=== PATIENT | female | born 1940 | race Caucasian/White ===

== ENCOUNTER 2017-04-12 04:59 | Inpatient (IN) | payer OTHER ==
[~2017-04-12] VITALS: Ht 167.6 cm; Wt 87.6 kg
[~2017-04-12 04:59] MED LIST: Aspirin E.C. PO; VICODIN 5-3001 EACH PO; Zestril,Prinivil PO
[2017-04-12 05:35] LABS: HEMATOCRIT 45.1 % (36.0-46.0); MCH 30.1 PG (29.0-34.0); MCHC 32.8 G/DL (30.0-36.0); MCV 91.7 FL (83-99); MEAN PLAT.VOLUME 10.2 uM^3 (9.5-12.4); PLATELET COUNT 508 K/uL (156-360); RBC DIS.WIDTH-CV 14.6 % (11.8-14.6); RBC DIS.WIDTH-SD 49.7 % (39-53); RED BLOOD COUNT 4.92 M/uL (3.80-5.20)
[2017-04-12 05:44] LABS: CHLORIDE 103 mEq/L (99-109); SODIUM 137 mEq/L (136-147)
[2017-04-12 05:46] LABS: GLUCOSE 184 mg/dL (70-99)
[2017-04-12 05:47] LABS: ANION GAP 12 MEQ/L (2-14)
[2017-04-12 05:48] LABS: TOTAL BILIRUBIN 1.4 mg/dL (0.0-1.0)
[2017-04-12 05:50] LABS: ALKALINE PHOSPHATASE 60 IU/L (3-129); GFR ESTIMATE (CALCULATED) 47 mL/min/
[2017-04-12 05:51] LABS: DIRECT BILIRUBIN 0.6 mg/dL (0.0-0.3); UREA NITROGEN (BUN) 17 mg/dL (9-23)
[2017-04-12 05:56] LABS: LIPASE < 1 U/L (1.0-51.0); TROP-I INTERPRETATION POSITIVE; TROPONIN-I 1.02 ng/mL (0.0-0.30)
[2017-04-12 06:52] LABS: INTER. NORMALIZED RATIO 1.1; PROTHROMBIN TIME 11.6 (9.2-11.2); PTT 26.9 (25-32)
[2017-04-12 07:52] LABS: ADD MIUA? YES; BILIRUBIN NEGATIVE; BLOOD NEGATIVE; COLOR AMBER ((YELLOW)); GLUCOSE (STRIP) NEGATIVE; KETONES 5; LEUKOCYTES TRACE; NITRITE NEGATIVE; PROTEIN (STRIP) 30; SPECIFIC GRAVITY 1.024 (1.000-1.030)
[2017-04-12 08:02] LABS: BACTERIA NONE SEEN /HPF; EPITHELIAL CELLS 1+ /HPF; HYALINE CASTS 0-5 /LPF; MUCUS TRACE /LPF; RED BLOOD CELLS 0-5 /HPF (0-5); UCUL ADDED? NO; WHITE BLOOD CELLS 0-5 /HPF (0-5)
[2017-04-12 12:44] VITALS: BP 120/62
[2017-04-12 17:07] VITALS: BP 143/75
[2017-04-12 18:38] LABS: TROP-I INTERPRETATION POSITIVE; TROPONIN-I 1.25 ng/mL (0.0-0.30)
[2017-04-12 19:52] VITALS: BP 108/56
[2017-04-12 19:59] LABS: HDL CHOLESTEROL 47 MG/DL (Desirable>=50); LDL CHOLESTEROL 107 mg/dL (Desirable<100); NON-HDL CHOLESTEROL 129 mg/dL (Desirable<160); TOTAL CHOLESTEROL 176 mg/dL (Desirable<200); TRIGLYCERIDES 109 MG/DL (Normal: <150)
[2017-04-12 23:49] VITALS: BP 112/55
[2017-04-13 02:42] LABS: TROP-I INTERPRETATION POSITIVE
[2017-04-13 04:30] VITALS: BP 118/57
[2017-04-13 07:07] LABS: CHLORIDE 107 mEq/L (99-109); POTASSIUM 4.4 mEq/L (3.7-5.4); SODIUM 137 mEq/L (136-147)
[2017-04-13 07:11] LABS: ANION GAP 7 MEQ/L (2-14)
[2017-04-13 07:13] LABS: ALKALINE PHOSPHATASE 50 IU/L (3-129); GFR ESTIMATE (CALCULATED) 58 mL/min/
[2017-04-13 07:14] LABS: GLUCOSE 95 mg/dL (70-99); TOTAL BILIRUBIN 0.7 mg/dL (0.0-1.0); UREA NITROGEN (BUN) 17 mg/dL (9-23)
[2017-04-13 07:45] VITALS: BP 112/59
[2017-04-13 11:41] VITALS: BP 123/62
[2017-04-13] MEDS ORDERED: LO-DOSE ASPIRIN81 M1 PO (15:22)
[2017-04-13] MEDS ORDERED: ZESTRIL10 MG PO (15:22)
[2017-04-13 16:40] VITALS: BP 142/71
[2017-04-13 20:03] VITALS: BP 127/68
[2017-04-14] VITALS (7 sets, daily range): BP systolic 114–154; BP diastolic 56–78
[2017-04-15 06:46] VITALS: BP 141/72
[2017-04-15 10:28] VITALS: BP 162/71
[2017-04-15 15:06] VITALS: BP 147/66
[2017-04-15] MEDS ORDERED: CLOPIDOGREL75 MG PO (19:57)
[2017-04-15] MEDS ORDERED: LOPRESSOR25 MG PO (19:57)
[2017-04-15] MEDS ORDERED: NITROSTAT0.4 MG SL (19:57)
[2017-04-15] MEDS ORDERED: ATORVASTATIN CA40 MG PO (19:57)
== END 2017-04-15 20:28 | disposition home or self-care (01) | DRG 282 ==
LOC: EME 04:59 → EDOF 07:13 → 4EAST 07:13
PROVIDERS: Emergency Medicine; Internal Medicine; Internal Medicine Cardiovascular Disease
DX: I21.4 Non-ST elevation (NSTEMI) myocardial infarction (principal); D72.829 Elevated white blood cell count, unspecified; I10 Essential (primary) hypertension; I25.10 Atherosclerotic heart disease of native coronary artery without angina pectoris; I34.0 Nonrheumatic mitral (valve) insufficiency; E66.9 Obesity, unspecified; Z68.31 Body mass index [BMI] 31.0-31.9, adult; Z79.82 Long term (current) use of aspirin; Z82.49 Family history of ischemic heart disease and other diseases of the circulatory system
CPT/HCPCS: 71010; 74176; 80048; 80053; 80061; 80076; 81003; 83605; 83690; 84484; 85027; 85610; 85730; 93005; 99281; 99285; C1769; C1887; J1200; J1644; J2250; J2405; J3010; J7030